=== PATIENT | female | born 1990 | race Hispanic/Latino ===

== ENCOUNTER 2024-04-18 14:19 | Emergency (ER) | payer OTHER ==
[~2024-04-18] VITALS: Ht 144.8 cm; Wt 110.8 kg
[2024-04-18] MEDS ORDERED: IBUPROFEN600 MG PO (15:14)
[2024-04-18] MEDS ORDERED: CYCLOBENZAPRINE5 MG PO (15:14)
[2024-04-18] MEDS ORDERED: TYLENOL325 MG PO (15:14)
[2024-04-18 15:33] VITALS: PULSE 78; RESP 16; TEMP 98.8; O2SAT 99
== END 2024-04-18 15:33 | disposition home or self-care (01) ==
LOC: FSED 14:23
DX: M54.2 Cervicalgia (principal); M54.6 Pain in thoracic spine; V53.5XXA Driver of pick-up truck or van injured in collision with car, pick-up truck or van in traffic accident, initial encounter; Y92.488 Other paved roadways as the place of occurrence of the external cause
CPT/HCPCS: 81003; 81025; 99283